=== PATIENT | male | born 1955 | race Caucasian/White ===

== ENCOUNTER → 2016-06-21 | Outpatient (CLI) | payer BC ==
--- NOTE | 2016-06-21 10:49 | DX ---
Double-Contrast Barium Enema History: Failed colonoscopy due to highly redundant sigmoid colon. Comparison: None available. Technique: After a locker plant attendant film was obtained, the enema tip was inserted and the balloon insufflated. B arium was instilled under gravity to the level of the distal transverse colon, and air was slowly ins erted. Spot images were obtained with overhead images in multiple positions. Fluoroscopy time: 10 minutes. Dose= 421 mGy. Findings: Bowel gas pattern is normal on the locker plant attendant view. Mild degenerative change is present in the spine. Despite repeat attempts at repositioning the patient and repeated insufflation of air, double contrast assessment of the entire colon is limited by highly redundant colon and frequent reflux of a ir through the rectum and ileum as well as difficulty passing contrast through the patient's redundan t sigmoid colon. It was difficult to maintain adequate distention of the descending and proximal sigm oid colon. The visualized portions of the colon are normal, with limited assessment of the cecum, sig moid colon, and portions of the descending colon. Mild diverticulosis extends throughout the colon. T here are no visible polyps, masses, or areas of stricture. Impression 1. Limited double contrast enema as above, with no visible colonic mass. Given the patient's difficul ty with colonoscopy and barium enema, CT colonoscopy may be useful for screening. 2. Mild diverticulosis throughout the colon.
== END ==
LOC: FIMAGING 08:15
PROVIDERS: ATTEND Internal Medicine Gastroenterology
DX: Z12.11 Encounter for screening for malignant neoplasm of colon (principal)

== ENCOUNTER → 2016-07-04 | Outpatient (CLI) | payer BC ==
--- NOTE | 2016-07-04 14:45 | CT ---
CT Virtual Colonography at 1258 hour History: Incomplete colonoscopy. Family history of malignant neoplasm of the digestive organs (Z 80. 0, diverticulosis (K 57.30), Technique: Spiral imaging was obtained through the abdomen and pelvis with thin slice images reconstr ucted in supine and prone position. Carbon dioxide was administered through our pump through a rectal tube as per usual technique. Images were reviewed on independent workstation with volume rendering f or virtual colonoscopy. Orthogonal imaging was also reviewed. Dose reduction techniques were utilized . Findings: On the virtual colonoscopy images there is adequate distention of the colon. There is no e vidence of polypoid mass or constricting lesion within the colon. There are a few uncomplicated diver ticula are identified predominantly involving the sigmoid colon. CT images through the abdomen and pelvis demonstrates no significant abnormalities. Fibrotic band is seen involving both lung bases posteriorly. The liver, spleen, gallbladder, pancreas, adrenals, and k idneys demonstrate no significant abnormality. There is a 2.8 cm cyst mid right kidney posteriorly. T he aorta tapers normally. There is no ascites. The bladder is normal. No pelvic masses are seen. Impression: 1. Relatively normal CT virtual colonoscopy without evidence of mass. 2. Incidental uncomplicated diverticula sigmoid colon. 3. No significant abnormality within the abdomen and pelvis on source images with incidental cyst mid right kidney posteriorly.
== END ==
LOC: FIMAGING 11:56
PROVIDERS: ATTEND Internal Medicine Gastroenterology
DX: Z80.0 Family history of malignant neoplasm of digestive organs (principal); Q43.8 Other specified congenital malformations of intestine; K57.30 Diverticulosis of large intestine without perforation or abscess without bleeding